=== PATIENT | male | born 1950 | race Caucasian/White ===

== ENCOUNTER 2016-12-01 19:59 | Outpatient (CLI) | payer MEDICARE, OTHER | END 2016-12-01 20:00 | disposition critical access hospital (66) | LOC: EMS 19:59 | PROVIDERS: ATTEND Surgery | DX: T42.8X1A Poisoning by antiparkinsonism drugs and other central muscle-tone depressants, accidental (unintentional), initial encounter (principal); Y92.009 Unspecified place in unspecified non-institutional (private) residence as the place of occurrence of the external cause | CPT/HCPCS: A0425; A0427 ==

== ENCOUNTER 2016-12-01 20:30 | Emergency (ER) | payer MEDICARE, OTHER ==
--- NOTE | 2016-12-02 00:55 | ED Physician Documentation ---
PD HPI OVERDOSE - Stated complaint Stated Complaint: POSS OD - Chief complaint Chief Complaint: General - History obtained from History obtained from: Patient, Family, EMS - History of Present Illness Timing - onset: How many hours ago (1) Subtance(s) ingested: Single, Other (levadopa) Associated symptoms: No: Cardiac arrest, Resp depression, Resp arrest, Combative , Hallucinations Contributing factors: Accidental Similar symptoms before: Has not had sx before Recently seen: Not recently seen - Additional information Additional information: Patient is a 66 year old male wiht a history of htn and parkinson's disease who is presenting to the emergency department for possibly taking 15 tabs of Carvidopa-Lovidopa CR 25/100mgtab. Patient states that he normally takes his meds out of an old pill container. When he took his meds this evening he noticed that the container for the carvidopa/lovidopa was no empty so he might have taken 15 of them. Patient denied any physical complaints and stated that it happened about an hour before coming to the hospital. Review of Systems Constitutional: denies: Fever, Chills Eyes: denies: Loss of vision, Decreased vision, Photophobia Ears: denies: Loss of hearing, Tinnitus/ringing Nose: reports: Reviewed and negative Throat: reports: Reviewed and negative Cardiac: denies: Chest pain / pressure, Palpitations Respiratory: denies: Dyspnea, Cough, Wheezing GI: denies: Nausea, Vomiting : reports: Reviewed and negative Musculoskeletal: reports: Reviewed and negative Neurologic: denies: Generalized weakness, Focal weakness, Numbness, Difficulty speaking, Near syncope, Syncope, Seizure, Confused, Altered mental status Psychiatric: denies: Depressed, Suicidal Immunocompromised: denies: Immunocompromised PD PAST MEDICAL HISTORY - Past Medical History Past Medical History: Yes Cardiovascular: Hypertension, High cholesterol Other Past Medical History: RLS - Past Surgical History Past Surgical History: No - Present Medications Home Medications: Ambulatory Orders Medication Instructions Recorded Confirmed Aspirin [Aspirin EC] 1 tab PO DAILY 12/01/16 12/01/16 Atenolol 1 tab PO DAILY 12/01/16 12/01/16 Carbidopa/Levodopa [Carbidopa-Levo 1 tab PO QPM PRN 12/01/16 12/01/16 ER 25-100 Tab] Lisinopril/Hydrochlorothiazide 1 tab PO DAILY 12/01/16 12/01/16 [Lisinopril-Hctz 20-25 mg Tab] Simvastatin 1 tab PO QPM 12/01/16 12/01/16 - Allergies Allergies/Adverse Reactions: Allergies Allergy/AdvReac Type Severity Reaction Status Date / Time No Known Drug Allergies Allergy Verified 12/01/16 20:41 - Social History Does the pt smoke?: No Smoking Status: Never smoker Does the pt drink ETOH?: Yes ETOH Use: Liquor Does the pt have substance abuse?: No - Immunizations Immunizations are current?: No - POLST Patient has POLST: No PD ED PE NORMAL - Vitals Vital signs reviewed: Yes - General General: Alert and oriented X 3, No acute distress, Well developed/nourished - HEENT HEENT: Atraumatic, PERRL - Neck Neck: Supple, no meningeal sign, No JVD - Cardiac Cardiac: RRR, No murmur - Respiratory Respiratory: No respiratory distress, Clear bilaterally - Abdomen Abdomen: Soft, Non tender, Non distended - Derm Derm: Normal color, Warm and dry, No rash - Extremities Extremities: No deformity, Normal ROM s pain - Neuro Neuro: Alert and oriented X 3, No motor deficit, No sensory deficit - Psych Psych: Normal mood, Normal affect Results - Vitals Vitals: Vital Signs - 24 hr 12/01/16 12/01/16 12/01/16 20:31 21:07 21:30 Temperature 37.0 C Heart Rate 63 62 60 Respiratory 24 22 16 Rate Blood Pressure 142/92 H 108/73 106/71 O2 Saturation 97 97 96 12/01/16 12/01/16 12/01/16 21:54 22:40 23:28 Temperature Heart Rate 60 63 59 L Respiratory 18 168 H 18 Rate Blood Pressure 104/60 113/78 104/65 O2 Saturation 97 97 96 12/02/16 00:17 Temperature Heart Rate 56 L Respiratory 17 Rate Blood Pressure 100/62 O2 Saturation 98 Oxygen O2 Source Room air - EKG (time done) 2042 Rate: Rate (enter#) (61) Rhythm: NSR [place]: Normal Intervals: Normal [place] QRS: Normal Ischemia: Normal ST segments Compare to prior EKG: Old EKG unavailable PD MEDICAL DECISION MAKING - ED course Complexity details: reviewed old records, reviewed results, re-evaluated patient , considered differential, d/w patient, d/w big machine consultant ED course: Patient was seen and examined at bedside. Poison control had already been called and they only recommended ekg and observation for 4-8 hours. Patient was asymptomatic. ekg was normal sinus rhythm. Patient was monitored for almost 5 hours without any symptoms. Patient required no further work up and was stable for discharge with outpatient follow up. Departure - Departure Disposition: Home, Self Care Clinical Impression: Accidental overdose Condition: Good Instructions: ED Overdose Accidental Follow-Up: primary,care provider [Other] - As Needed Comments: there doesn't appear to be any side effects from your medication this evening. Your ekg was within normal limits. It has been about 6 hours since your ingestion so it is very unlikely that anything will happen at this point. If you do start to feel symptomatic you should return to the emergency department, otherwise follow up with your doctor as needed.
[2016-12-02 01:04] VITALS: BP 104/67
== END 2016-12-02 01:14 | disposition home or self-care (01) ==
LOC: EDUNIT# → ED 20:30
DX: T42.8X1A Poisoning by antiparkinsonism drugs and other central muscle-tone depressants, accidental (unintentional), initial encounter (principal); G20 Parkinson's disease; I10 Essential (primary) hypertension; E78.00 Pure hypercholesterolemia, unspecified; Z79.82 Long term (current) use of aspirin
CPT/HCPCS: 93005; 99284